=== PATIENT | male | born 1995 | race African-American/Black ===

== ENCOUNTER 2017-03-24 11:59 | Emergency (ER) | payer MEDICAID | END 2017-03-24 14:00 | disposition home or self-care (01) | LOC: D.ER 11:59 | DX: S43.401A Unspecified sprain of right shoulder joint, initial encounter (principal); X58.XXXA Exposure to other specified factors, initial encounter; Y93.89 Activity, other specified; Y92.019 Unspecified place in single-family (private) house as the place of occurrence of the external cause; S43.402A Unspecified sprain of left shoulder joint, initial encounter; M25.511 Pain in right shoulder ==